=== PATIENT | female | born 2000 | race Caucasian/White ===

== ENCOUNTER 2022-07-12 08:49 | Emergency (ER) | payer OTHER ==
[~2022-07-12] VITALS: Ht 162.6 cm; Wt 92.5 kg
[2022-07-12 08:59] VITALS: BP 123/56
--- NOTE | 2022-07-12 09:02 | NUR ---
PT AMB TO BED 3
--- NOTE | 2022-07-12 09:06 | NUR ---
22YO FEMALE PT C/O RASH XYESTERDAY. REPORTS SUDDEN ONSET. PRESENTS W/ REDDENED RASH THROUGHOUT BODY W/ MOST NOTED IN LOWER EXTREMITIES. STATES MILD RELIEF AFTER BENADRYL. DENIES CHANGE IN DAILY ROURINE, N/V/D, FEVER, CHILLS, CHEST PAIN OR SOB. PT AAOX4, RESPIRATIONS EVEN AND UNLABORED. HX:DENIES NKA
[2022-07-12] MEDS ORDERED: DIPH25TA53 PO (09:27)
[2022-07-12] MEDS ORDERED: PRED20TA5 PO (09:27)
--- NOTE | 2022-07-12 09:27 | NUR ---
Patient discharged with v/s stable. Written and verbal after care instructions FOR ALLERGIES AND HIVES given and explained. Patient alert, oriented and verbalized understanding of instructions. Ambulatory with steady gait. All questions addressed prior to discharge. ID band removed. Patient advised to follow up with PMD. Rx of BENADRYL AND PREDNISONE given. Opportunity to ask questions provided and answered.
--- NOTE | 2022-07-12 09:28 | NUR ---
The patient's care was reviewed and supervised by [facility], RN.
== END 2022-07-12 09:27 | disposition home or self-care (01) ==
LOC: MED 08:49
DX: T78.49XA Other allergy, initial encounter (principal); L50.9 Urticaria, unspecified; Z79.899 Other long term (current) drug therapy; X58.XXXA Exposure to other specified factors, initial encounter
CPT/HCPCS: 99283